=== PATIENT | female | born 1970 | race Caucasian/White ===

== ENCOUNTER 2019-08-16 11:10 | Outpatient (CLI) | payer OTHER, SELFPAY ==
--- NOTE | ~2019-08-16 | US_ITS ---
US breast BI limited DATE: 08/16/2019 11:45 INDICATION: Bilateral mammographic asymmetries reported on 08/03/2019 screening mammogram examination TECHNIQUE: High-resolution ultrasound imaging and color flow imaging of the outer quadrants of each b reast COMPARISON: 08/03/2019 bilateral diagnostic digital mammogram FINDINGS: Right breast: 7:00 4 cm from nipple: 5.5 x 4.7 x 4.4 mm sonolucency with through transmission posterior enhancement consistent with cyst 9:00 3 cm from nipple: There are 2 contiguous circumscribed sonolucent lesions measuring approximatel y 5.1 and 7.9 mm approximate maximal dimension, likely cysts 10:00 axillary area 9 cm from nipple: And axillary lymph node is demonstrated, with normal-appearing cortex 11:00 2 cm from nipple: Parallel circumscribed hypoechoic 5.3 x 3.3 x 5.8 mm lesion without internal vascularity or suspicious shadowing 12:00 1 cm from nipple: 4.2 x 3.9 x 6.4 mm sonolucency with through transmission, consistent with ingrid ign cyst 12:00 1 cm from nipple: Parallel circumscribed 6.8 x 4.5 x 6.1 mm hypoechoic lesion without internal vascularity or posterior shadowing 12:00 1 cm from nipple: Parallel circumscribed hypoechoic 4.2 x 3.0 x 4.8 mm lesion without internal vascularity or posterior shadowing Left breast: There is a benign appearing prominent lymph node in the left breast at 1:00 2:00 1 cm from nipple: Parallel circumscribed 4.5 x 5.1 mm sonolucency without internal vascularity o r posterior shadowing 6:00 1 cm from nipple: 3.8 x 3.0 x 3.8 mm sonolucency consistent with small cysts 12:00 2 cm from nipple: 5.1 x 3 x 6.6 mm benign-appearing lymph node. No suspicious mass or shadowing of either breast is evident. IMPRESSION: BI-RADS Category 2: Benign findings Recommendation: Routine annual mammographic screening Reviewed, dictated and finalized at [facility] Reviewed, dictated and finalized at [facility]. 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
== END 2019-08-16 11:11 | disposition home or self-care (01) ==
DX: N61.1 Abscess of the breast and nipple (principal)
CPT/HCPCS: 76642